=== PATIENT | female | born 1960 | race Caucasian/White ===

== ENCOUNTER → 2017-01-18 | Outpatient (CLI) | payer OTHER ==
[2017-01-18 10:34] LABS: CHLORIDE,CL 109 mmol/L (98-110); SODIUM,NA 143 mmol/L (136-146)
== END ==
LOC: MW.CHRC 09:51
PROVIDERS: ATTEND Family Medicine
DX: Z00.00 Encounter for general adult medical examination without abnormal findings (principal); I10 Essential (primary) hypertension; E03.9 Hypothyroidism, unspecified
CPT/HCPCS: 36415; 80053; 80061; 84443

== ENCOUNTER → 2017-02-19 | Outpatient (CLI) | payer OTHER ==
[2017-02-19 11:53] LABS: CHLORIDE,CL 107 mmol/L (98-110); SODIUM,NA 143 mmol/L (136-146)
--- NOTE | 2017-02-19 12:37 | CR ---
EXAMINATION: Two-view chest (PA and Lateral views). HISTORY: Preprocedural examination. FINDINGS: The trachea is midline. The cardiomediastinal silhouette is within normal limits. No pulmonary infil trates, effusions or pneumothorax. Osseous structures appear unremarkable. IMPRESSION: No acute cardiopulmonary process.
== END ==
LOC: MW.CHFP 10:30
PROVIDERS: ATTEND Family Medicine
DX: Z01.818 Encounter for other preprocedural examination (principal); M77.52 Other enthesopathy of left foot and ankle
CPT/HCPCS: 36415; 71020; 71020-26; 80048; 81001; 85025; 85610; 85730; 93005

== ENCOUNTER 2018-04-24 22:19 | Emergency (ER) | payer OTHER ==
--- NOTE | 2018-04-24 22:56 | EDM.PDOC ---
ED HPI GENERAL MEDICAL PROBLEM - General Chief Complaint: Gastrointestinal Problem Stated Complaint: PAIN TO BOTTOM Time Seen by Provider: 04/24/18 22:56 Source of Information: Reports: Patient History Limitations: Reports: No Limitations - History of Present Illness INITIAL COMMENTS - FREE TEXT/NARRATIVE: HISTORY AND PHYSICAL: History of present illness: 57-year-old female presenting to emergency department with chief complaint of bright red per rectum. Patient states that for the past few days she has noticed increasing bright red blood per rectum. States that she has a history of anal fissure that was repaired in [place] in January. States that she did have an abscess as well as the fissure that was repaired. Did have spotting as well as occasional bleeding for sometime after the surgery but in the past 2 days has had increasing bright red blood per rectum. Today she also felt somewhat lightheaded so came into the emergency department for further evaluation. States that she has no pain with defecation. She does have a history of hemorrhoids and has had and hemorrhoidectomy in the past. Denies any significant abdominal pain however she does have a history of irritable bowel so has intermittent abdominal pain consistently. Currently denies any chest pain, palpitations, shortness of breath , syncopal episodes, focal neurologic deficits. Patient has a midline suprapubic scar from total hysterectomy. States that her appendix was removed during that surgery. No other abdominal surgeries. On exam I do feel what seems to be a small anal fissure. No visible or palpable hemorrhoids. Abdomen is soft, nontender, nondistended. No other significant abnormalities found on exam. Review of systems: As per history of present illness and below otherwise all systems reviewed and negative. Past medical history: As per history of present illness and as reviewed below otherwise noncontributory. Surgical history: As per history of present illness and as reviewed below otherwise noncontributory. Social history: No reported history of drug or alcohol abuse. Family history: As per history of present illness and as reviewed below otherwise noncontributory. Physical exam: HEENT: Atraumatic, normocephalic, pupils reactive, negative for conjunctival pallor or scleral icterus, mucous membranes moist, throat clear, neck supple, nontender, trachea midline. Lungs: Clear to auscultation, breath sounds equal bilaterally, chest nontender. Heart: S1S2, regular, negative for clicks, rubs, or JVD. Abdomen: Soft, nondistended, nontender. Negative for masses or hepatosplenomegaly. Negative for costovertebral tenderness. Pelvis: Stable nontender. Genitourinary: Deferred. Rectal: Deferred. Extremities: Atraumatic, negative for cords or calf pain. Neurovascular unremarkable. Neuro: Awake, alert, oriented. Cranial nerves II through XII unremarkable. Cerebellum unremarkable. Motor and sensory unremarkable throughout. Exam nonfocal. Diagnostics: CBC, CMP, UA/UC, CT abdomen and pelvis Therapeutics: 1 L normal saline Impression: Anal fissure Bright red blood per rectum Plan: CBC showed a hemoglobin of 12. CMP as well as urinalysis were unremarkable. CT of the abdomen and pelvis were unremarkable as well. Did communicate this is patient and told her that this is most likely more from her anal fissure. I would recommend her to follow-up with general surgery as soon as possible for further evaluation she may benefit from colonoscopy as well however she did state that she's had a colonoscopy the within the last 4 years with no significant findings. As above patient was discharged in good condition with instructions to follow-up with general surgery as well as return to emergency department if she had a new or worsening symptoms. - Related Data Allergies Allergy/AdvReac Type Severity Reaction Status Date / Time erythromycin base Allergy Nausea and Verified 04/24/18 22:41 Vomiting levofloxacin [From Levaquin] Allergy Headache Verified 04/24/18 22:41 Penicillins Allergy Hives Verified 04/24/18 22:41 Home Meds: Home Meds traZODone HCl [Trazodone HCl] 100 mg PO BEDTIME 03/29/17 [History] FLUoxetine [PROzac] 30 mg PO DAILY 04/24/18 [History] Past Medical History Other HEENT History: wears glasses Cardiovascular History: Reports: None Respiratory History: Reports: None Gastrointestinal History: Reports: GERD, Hemorrhoids, Irritable Bowel Syndrome Genitourinary History: Reports: None [employer] History: Reports: None Musculoskeletal History: Reports: Fracture Other Musculoskeletal History: hx of fx left arm Neurological History: Reports: Other (See Below) Other Neuro History: hx of motion sickness Psychiatric History: Reports: Anxiety, Depression Endocrine/Metabolic History: Reports: None Hematologic History: Reports: None Immunologic History: Reports: None Oncologic (Cancer) History: Reports: None Dermatologic History: Reports: None - Past Surgical History Head Surgeries/Procedures: Reports: None HEENT Surgical History: Reports: Tonsillectomy Cardiovascular Surgical History: Reports: None Respiratory Surgical History: Reports: None GI Surgical History: Reports: Appendectomy, Colonoscopy, Other (See Below) Other GI Surgeries/Procedures: hemorrhoidectomy Female Surgical History: Reports: Hysterectomy Endocrine Surgical History: Reports: None Neurological Surgical History: Reports: None Musculoskeletal Surgical History: Reports: ORIF Other Musculoskeletal Surgeries/Procedures:: hx of ORIF left arm and hardware removal left arm Dermatological Surgical History: Reports: None ED ROS GENERAL - Review of Systems Review Of Systems: ROS reveals no pertinent complaints other than HPI. ED EXAM, GENERAL - Physical Exam Exam: See Below Course - Vital Signs Last Recorded V/S: Last Vital Signs Temp 97.9 F 04/24/18 22:19 Pulse 73 04/24/18 22:19 Resp 16 04/24/18 22:19 BP 159/87 H 04/24/18 22:19 Pulse Ox 97 04/24/18 22:19 - Orders/Labs/Meds Orders: Active Orders 24 hr Category Date Time Status Abdomen Pelvis w Cont [CT] Stat Exams 04/25/18 00:14 Stop Req Abdomen Pelvis wo Cont [CT] Stat Exams 04/25/18 00:43 Taken CULTURE URINE [RM] Stat Lab 04/25/18 00:40 Received UA W/MICROSCOPIC [URIN] Stat Lab 04/25/18 00:40 Ordered Labs: Laboratory Tests 04/24/18 04/24/18 04/25/18 Range/Units 23:40 23:40 00:40 WBC 5.89 (4.0-11.0) K/uL RBC 4.35 (4.30-5.90) M/uL Hgb 12.9 (12.0-16.0) g/dL Hct 37.0 (36.0-46.0) % MCV 85.1 (80.0-98.0) fL MCH 29.7 (27.0-32.0) pg MCHC 34.9 (31.0-37.0) g/dL RDW Std Deviation 38.6 (28.0-62.0) fl RDW Coeff of Quan 13 (11.0-15.0) % Plt Count 249 (150-400) K/uL MPV 10.00 (7.40-12.00) fL Neut % (Auto) 53.8 (48.0-80.0) % Lymph % (Auto) 37.4 (16.0-40.0) % [place]cdonough % (Auto) 6.8 (0.0-15.0) % Eos % (Auto) 1.5 (0.0-7.0) % Baso % (Auto) 0.5 (0.0-1.5) % Neut # (Auto) 3.2 (1.4-5.7) K/uL Lymph # (Auto) 2.2 (0.6-2.4) K/uL Mcdonough # (Auto) 0.4 (0.0-0.8) K/uL Eos # (Auto) 0.1 (0.0-0.7) K/uL Baso # (Auto) 0.0 (0.0-0.1) K/uL Nucleated RBC % 0.0 /100WBC Nucleated RBCs # 0 K/uL Sodium 139 (136-145) mmol/L Potassium 3.5 (3.5-5.1) mmol/L Chloride 103 (98-107) mmol/L Carbon Dioxide 24.5 (21.0-32.0) mmol/L BUN 21 H (7.0-18.0) mg/dL Creatinine 1.0 (0.6-1.0) mg/dL Est Cr Clr Drug Dosing 61.10 mL/min Estimated GFR (MDRD) 56.7 ml/min Glucose 100 (74-106) mg/dL Calcium 8.6 (8.5-10.1) mg/dL Total Bilirubin 0.3 (0.2-1.0) mg/dL AST 17 (15-37) IU/L ALT 24 (14-63) IU/L Alkaline Phosphatase 58 (46-116) U/L Total Protein 7.0 (6.4-8.2) g/dL Albumin 4.0 (3.4-5.0) g/dL Globulin 3.0 (2.0-3.5) g/dL Albumin/Globulin Ratio 1.3 (1.3-2.8) Urine Color YELLOW Urine Appearance CLEAR Urine pH 5.5 (5.0-8.0) Ur Specific [place] <= 1.005 (1.001-1.035) Urine Protein NEGATIVE (NEGATIVE) mg/dL Urine Glucose (UA) NEGATIVE (NEGATIVE) mg/dL Urine Ketones NEGATIVE (NEGATIVE) mg/dL Urine Occult Blood TRACE-INTACT (NEGATIVE) Urine Nitrite NEGATIVE (NEGATIVE) Urine Bilirubin NEGATIVE (NEGATIVE) Urine Urobilinogen 0.2 (<2.0) EU/dL Ur Leukocyte Esterase NEGATIVE (NEGATIVE) Urine RBC 0-1 (0-2/HPF) Urine WBC 0-1 (0-5/HPF) Ur Epithelial Cells RARE (NONE-FEW) Urine Bacteria RARE (NEGATIVE) Meds: Medications Discontinued Medications Generic Name Dose Route Start Last Admin Trade Name Freq PRN Reason Stop Dose Admin Sodium Chloride 1,000 mls @ 1,000 mls/hr 04/24/18 23:48 04/24/18 23:50 Normal Saline IV 04/25/18 00:47 1,000 mls/hr .Bolus ONE Administration Departure - Departure Time of Disposition: 01:49 Disposition: Home, Self-Care 01 Condition: Good Clinical Impression: Anal fissure, unspecified, Bright red blood per rectum - Discharge Information Referrals: Felix Arguello MD [Primary Care Provider] - Forms: ED Department Discharge Additional Instructions: My general discharge The following information is given to patients seen in the emergency department who are being discharged to home. This information is to outline your options for follow-up care. We provide all patients seen in our emergency department with a follow-up referral. The need for follow-up, as well as the timing and circumstances, are variable depending upon the specifics of your emergency department visit. If you don't have a primary care physician on staff, we will provide you with a referral. We always advise you to contact your personal physician following an emergency department visit to inform them of the circumstance of the visit and for follow-up with them and/or the need for any referrals to a consulting specialist. The emergency department will also refer you to a specialist when appropriate. This referral assures that you have the opportunity for follow-up care with a specialist. All of these measure are taken in an effort to provide you with optimal care, which includes your follow-up. Under all circumstances we always encourage you to contact your private physician who remains a resource for coordinating your care. When calling for follow-up care, please make the office aware that this follow-up is from your recent emergency room visit. If for any reason you are refused follow-up, please contact the [facility] Emergency Department at and asked to speak to the emergency department charge nurse. My General Surgery [facility] Specialty Care - General Surgery Professional Building [address] [place] [address], [address] [place] [address] Please call number above and asked to be seen by Dr. Hirsch for bright red blood per rectum most likely secondary to anal fissure. Be sure to tell them you were recently seen in the emergency department and they recommended follow- up as soon as possible. Follow-up with her care provider. Return to emergency department if any new or worsening symptoms. - My Orders Last 24 Hours: My Active Orders 04/25/18 00:14 Abdomen Pelvis w Cont [CT] Stat 04/25/18 00:40 CULTURE URINE [RM] Stat UA W/MICROSCOPIC [URIN] Stat 04/25/18 00:43 Abdomen Pelvis wo Cont [CT] Stat - Assessment/Plan Last 24 Hours: My Active Orders 04/25/18 00:14 Abdomen Pelvis w Cont [CT] Stat 04/25/18 00:40 CULTURE URINE [RM] Stat UA W/MICROSCOPIC [URIN] Stat 04/25/18 00:43 Abdomen Pelvis wo Cont [CT] Stat
[2018-04-24 23:01] VITALS: BP 159/87
[2018-04-24] MEDS ORDERED: Sodium Chloride 0.9% 1,000 ML IV ONE (23:48)
--- NOTE | 2018-04-25 16:38 | CT ---
EXAM DATE: 04/24/18 PATIENT'S AGE: 57 Patient: AKBAR DOMINGUEZ Facility: [place], [place] Site . Site : [id number] Study: CT Abdomen/Pelvis [id number]/22/2018 1:14:03 AM Ordering Physician: Juanjose Mane Final Report: INDICATION: blood in stool x 2 daysHx of fissure, abscess, etc TECHNIQUE: CT abdomen and pelvis acquired with IV contrast. COMPARISON: None FINDINGS: Lower chest: Unremarkable. Liver: Unremarkable. Spleen: Unremarkable. Pancreas: Unremarkable. Gallbladder and bile ducts: Unremarkable. Kidneys: Subcentimeter focus of low attenuation within the upper pole of the left kidney which is too small to accurately characterize by CT Adrenal glands: Unremarkable. GI tract: Moderate amount of stool. The appendix is not visualized. Vascular structures: Negative. No sign of aneurysm. Lymph nodes: Unremarkable. Miscellaneous: Unremarkable. No free air or significant free fluid. Pelvic Organs: Hysterectomy. Bones: Unremarkable for age. IMPRESSION: No acute abnormality of the abdomen and pelvis. Moderate amount of stool. Dictated by Eric Allen MD @ 04/25/2018 1:27:28 AM Please note that all CT scans at this facility use dose modulation, iterative reconstruction, and/or weight-based dosing when appropriate to reduce radiation dose to as low as reasonably achievable. Dictated by: Eric Allen MD @ 04/25/2018 01:27:39 (Electronic Signature) Report Signed by Proxy. [facility]OSPITALMiller
== END 2018-04-25 02:04 | disposition home or self-care (01) ==
LOC: MW.ED 22:19
DX: K60.2 Anal fissure, unspecified (principal); K62.5 Hemorrhage of anus and rectum; Z88.1 Allergy status to other antibiotic agents; Z88.0 Allergy status to penicillin; Z79.899 Other long term (current) drug therapy
CPT/HCPCS: 74176; 80053; 81001; 85025; 87086; 96360; 96361; 99285; J7040

== ENCOUNTER 2018-06-23 06:48 | Day surgery (SDC) | payer OTHER ==
[2018-06-23] MEDS ORDERED: Bupivacaine 0.5% 30 ML SDV ONE (07:21)
--- NOTE | 2018-06-23 07:29 | PCM.PREANE ---
Preanesthetic Assessment - Anesthesia/Transfusion/Family Hx Anesthesia History: Prior Anesthesia Without Reaction Transfusion History: No Prior Transfusion(s) Intubation History: Unknown - Review of Systems General: No Symptoms Pulmonary: No Symptoms Cardiovascular: No Symptoms Neurological: No Symptoms Other: Reports: None - Physical Assessment O2 Sat by Pulse Oximetry: 97 Respiratory Rate: 16 Vital Signs: Last Vital Signs Temp 36.6 C 06/23/18 07:06 Pulse 71 06/23/18 07:06 Resp 16 06/23/18 07:06 BP 136/93 H 06/23/18 07:06 Pulse Ox 97 06/23/18 07:06 Height: 1.73 m Weight: 73.936 kg ASA Class: 2 Mental Status: Alert & Oriented x3 Dentition: Reports: Normal Dentition (braces - upper and lower) Thyro-Mental Finger Breadths: 3 Mouth Opening Finger Breadths: 3 ROM/Head Extension: Full Lungs: Clear to Auscultation, Normal Respiratory Effort Cardiovascular: Regular Rate, Regular Rhythm - Allergies Allergies/Adverse Reactions: Allergies Allergy/AdvReac Type Severity Reaction Status Date / Time erythromycin base Allergy Nausea and Verified 06/18/18 14:36 Vomiting levofloxacin [From Levaquin] Allergy Headache Verified 06/18/18 14:36 Penicillins Allergy Hives Verified 06/18/18 14:36 - Blood Blood Available: No - Anesthesia Plan Pre-Op Medication Ordered: None - Acknowledgements Anesthesia Type Planned: General Anesthesia Pt an Appropriate Candidate for the Planned Anesthesia: Yes Alternatives and Risks of Anesthesia Discussed w Pt/Guardian: Yes Pt/Guardian Understands and Agrees with Anesthesia Plan: Yes PreAnesthesia Questionnaire HEENT History: Reports: Other (See Below) Other HEENT History: wears glasses Cardiovascular History: Reports: High Cholesterol, Hypertension Other Cardiovascular History: not taking meds Respiratory History: Reports: None Gastrointestinal History: Reports: Chronic Constipation, Chronic Diarrhea, Hemorrhoids, Irritable Bowel Syndrome Genitourinary History: Reports: None [employer] History: Reports: None Musculoskeletal History: Reports: Fracture Other Musculoskeletal History: hx of fx left humerus Neurological History: Reports: Other (See Below) Other Neuro History: hx of motion sickness Psychiatric History: Reports: Anxiety, Depression Endocrine/Metabolic History: Reports: None Hematologic History: Reports: None Immunologic History: Reports: None Oncologic (Cancer) History: Reports: None Dermatologic History: Reports: None - Past Surgical History Head Surgeries/Procedures: Reports: None HEENT Surgical History: Reports: Tonsillectomy Cardiovascular Surgical History: Reports: None Respiratory Surgical History: Reports: None GI Surgical History: Reports: Appendectomy, Colonoscopy, Other (See Below) Other GI Surgeries/Procedures: repair of rectal fissure and hemorrhoidectomy Female Surgical History: Reports: Hysterectomy Endocrine Surgical History: Reports: None Neurological Surgical History: Reports: None Musculoskeletal Surgical History: Reports: ORIF Other Musculoskeletal Surgeries/Procedures:: ORIF left humerus- hardware removed Dermatological Surgical History: Reports: None - SUBSTANCE USE Smoking Status *Q: Never Smoker Recreational Drug Use History: No - HOME MEDS Home Medications: Home Meds traZODone HCl [Trazodone HCl] 100 mg PO BEDTIME 03/29/17 [History] LORazepam 0.5 mg PO TID PRN 06/18/18 [History] Multivitamin [Multiple Vitamins] 1 tab PO DAILY 06/18/18 [History] PARoxetine HCl [Paxil] 30 mg PO DAILY 06/18/18 [History] - CURRENT (IN HOUSE) MEDS Current Meds: Current Medications Discontinued Medications Bupivacaine HCl (Marcaine 0.5%) Confirm Administered Dose 30 ml .ROUTE .STK-MED ONE Stop: 06/23/18 07:22
[2018-06-23] MEDS ORDERED: Lidocaine 2% 5 ML SDV ONE (07:31)
[2018-06-23] MEDS ORDERED: Ondansetron 4 MG/2 ML SDV ONE (07:31)
[2018-06-23] MEDS ORDERED: Propofol 200 MG/20 ML SDV ONE (07:31)
[2018-06-23] MEDS ORDERED: Midazolam 1 MG/ML 2 ML SDV ONE (07:32)
[2018-06-23] MEDS ORDERED: fentaNYL 250 MCG/5 ML SDV ONE (07:32)
[2018-06-23] MEDS ORDERED: Ketorolac 30 MG/ML SDV ONE (09:04)
--- NOTE | 2018-06-23 09:58 | PCM.OPNOTE ---
- General Post-Op/Procedure Note Date of Surgery/Procedure: 06/23/18 Operative Procedure(s): exostectomy and excision of loose body first metatarsal phalangeal joint left foot Findings: consistent with dx Pre Op Diagnosis: exostosis and loose body first metatarsal phalangeal joint left foot Post-Op Diagnosis: exostosis and loose body first metatarsal phalangeal joint left foot Anesthesia Technique: General LMA Primary Surgeon: Cristofer Tamez Anesthesia Provider: Sarina Gautam Pathology: loose bodies removed from first metatarsal phalangeal joint left foot EBL in mLs: 3 Complications: none Condition: Good Free Text/Narrative:: injectables 7 ml 0.5% marcaine plain materials: 4-0 vicryl, 4-0 monocryl, 4-0 Statafix monocryl
--- NOTE | 2018-06-23 11:02 | PCM48HPAN ---
Post Anesthesia Note - EVALUATION WITHIN 48HRS OF ANESTHETIC Vital Signs in Normal Range: Yes Patient Participated in Evaluation: Yes Respiratory Function Stable: Yes Airway Patent: Yes Cardiovascular Function Stable: Yes Hydration Status Stable: Yes Pain Control Satisfactory: Yes Nausea and Vomiting Control Satisfactory: Yes Mental Status Recovered: Yes Resp Rate: 12
--- NOTE | 2018-06-23 11:02 | PCM.POSTAN ---
POST ANESTHESIA ASSESSMENT - MENTAL STATUS Mental Status: Alert, Oriented - RESPIRATORY Respiratory Status: Respiratory Rate WNL, Airway Patent, O2 Saturation Stable - CARDIOVASCULAR CV Status: Pulse Rate WNL, Blood Pressure Stable - GASTROINTESTINAL GI Status: No Symptoms - POST OP HYDRATION Hydration Status: Adequate & Stable
[2018-06-23 11:14] VITALS: BP 118/79
--- NOTE | 2018-06-23 14:00 | PN ---
SUBJECTIVE: The patient is a 57-year-old female, date of surgery is today June 23, 2018. Planned procedure is exostectomy and removal of loose body, first metatarsophalangeal joint, left foot. Anesthesia, general. Hemostasis, above the ankle pneumatic tourniquet, inflated to a pressure of 250 mmHg. MEDICAL HISTORY: Allergies: 1. Potassium. 2. Penicillins. 3. Levaquin. 4. Erythromycin. CURRENT MEDICATIONS: 1. Lorazepam 0.5 mg oral tablet, one tablet three times daily as needed. 2. Multivitamin daily oral tablet, take one tablet daily. 3. Paroxetine hydrochloride 30 mg oral tablet, take one tablet daily. 4. Trazodone hydrochloride 100 mg oral tablet, one tablet at bedtime. ACTIVE PROBLEMS: 1. Acute bronchitis. 2. Acute sinusitis. 3. Acute viral bronchitis. 4. Anxiety. 5. skin of the left upper extremity and shoulder. 6. Bone spur, left toe of left foot. 7. Breast cancer screening. 8. Depression with anxiety. 9. History of dyslipidemia. 10.Hemorrhoids. 11.High blood pressure. 12.High cholesterol. 13.History of obesity. 14.Hypocalcemia. 15.Insomnia. 16.Irritable bowel syndrome with constipation and diarrhea. 17.Left foot pain. 18.History of . 19.Neuralgia, paresthesia of right side. 20.Osteopenia of the elbow region. 21.Osteoporosis. 22.Preoperative examination. 23.Rosacea. 24.Seborrheic keratosis. 25.Sore throat. PAST MEDICAL HISTORY: History of dyslipidemia; history of euthyroid; history of hemorrhoids, external; history of hemorrhoids, internal; history of constipation; history of hypothyroidism; history of obesity; history of menopausal symptoms. SURGICAL HISTORY: History of appendectomy, history of complete colonoscopy, history of hemorrhoidectomy, history of hysterectomy not due to cancer, history of tonsillectomy, and history of total abdominal hysterectomy. LABORATORY DATA: Urinalysis was unremarkable. White blood cells 4.13, red blood cells 4.37, hemoglobin 12.8, hematocrit 37.7, platelet count 237. INR 0.98, PTT 27.3. Sodium 140, potassium 4.5, chloride 105, CO2 of 29.2, random glucose 91, BUN 17, creatinine 0.9. EKG and chest x-ray were reviewed from last year by Dr. Arguello and showed no disqualifying factors. The patient was cleared for surgery by Dr. Arguello with no contraindications to surgery. The patient consent is signed in the chart. All patient questions have been answered and risks and benefits of surgery have been discussed with the patient. No guarantees given or implied. CHRISTY RUSSELL /[id number]
--- NOTE | 2018-06-24 02:53 | OR ---
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 POSTOPERATIVE DIAGNOSIS: Exostosis with loose body, first metatarsophalangeal joint, left foot. OPERATIVE PROCEDURE: Exostectomy with excision of loose body, first metatarsophalangeal joint, left foot. ANESTHESIA: General. HEMOSTASIS: Above ankle pneumatic tourniquet inflated to a pressure of 250 mmHg after an Esmarch bandage exsanguination of the left lower extremity. ESTIMATED BLOOD LOSS: 5 mL. MATERIALS: 4-0 Vicryl, 4-0 Stratafix, Monocryl, and 4-0 Monocryl. INJECTABLES: 7 mL of 0.5% Marcaine plain. PATHOLOGY: 3 loose bodies consisting of bone found within the first metatarsophalangeal joint of the left foot. CONDITION: The patient tolerated the procedure and anesthesia well without any complications noted or reported. JUSTIFICATION FOR THE PROCEDURE: The patient, Ms. Perales, has long suffered from pain in the first metatarsophalangeal joint of her left foot with no appreciable range of motion, particularly on dorsiflexion. She originally wanted to have this surgery last year, however, scheduling conflicts caused her to wait until today. Conservative treatments have proven unsuccessful in providing lasting satisfactory alleviation of symptoms for the patient. The patient was told of the benefits as well as possible side effects of surgery. With the patient consenting for the surgical correction today, all patient questions were answered, no guarantees expressed or implied, the patient consent form was signed and placed in the patient's chart. The patient was brought to the operating room and placed on the operating table in a supine position, at which time an aseptic scrub and drape was performed about the patient's left lower extremity after anesthesia had been induced as described above. The pneumatic tourniquet about the ankle was inflated to a pressure of 250 mmHg. Attention was directed to the dorsal aspect of the patient's left first metatarsophalangeal joint where the procedure commenced. PROCEDURE IN DETAIL: A 2.5 cm linear incision was planned and made over the patient's first metatarsophalangeal joint of the left foot. The incision was deepened down to the level of subcutaneous tissue with care taken to cut, clamp, ligate, and/or retract away any small vascular structures traversing the incision site. Incision was deepened down to the level of the extensor hallucis longus tendon which was retracted both medially and laterally during the procedure as necessary to expose the exostosis identified on the head of the first metatarsal as well as the loose bodies within the joint. Intraoperative fluoroscopy was used throughout the procedure as needed including prior to beginning the procedure and demonstrated an exostosis present at the dorsal aspect of the first metatarsal head of the left leg as well as significant loose body fragments within the joint. Once the first metatarsophalangeal joint was exposed, 3 loose bodies of various sizes ranging as great as up to 1.6 cm roughly in the greatest dimension were removed and were placed in a sterile specimen container for transport to pathology for gross and histologic examination as needed. A bone rongeur was used to remove the exostosis at the first metatarsal head and a power rasp was used to rasp smooth the hypertrophic head area. The incision site was copiously irrigated with normal sterile saline and dabbed dry in preparation for layered soft tissue closure. The deep and subcutaneous tissue reapproximated with 4-0 Vicryl suture, and the superficial skin was reapproximated using Stratafix 4-0 Monocryl as well as 4-0 Monocryl suture. The area was infiltrated with 7 mL of 0.5% Marcaine plain and covered with Betadine-soaked Xeroform gauze, fluff gauze, Kerlix roll, and secured with an Justin bandage. As the dressings were being applied, the tourniquet was deflated and a prompt hyperemic response was noted to all digits of the left foot of the patient. The patient tolerated the procedure and the anesthesia well with no complications noted, and after brief stay in recovery was transported back to the preoperative bay, and discharged home with prescription for adequate analgesic care and written instructions in the discharge plan for followup. The patient maintains my cellphone in the event any concerns arise. CHRISTY / YVONNE /[id number]
== END 2018-06-23 12:14 | disposition home or self-care (01) ==
LOC: MW.SDS 06:48
PROVIDERS: ATTEND Podiatrist Foot & Ankle Surgery
DX: D16.32 Benign neoplasm of short bones of left lower limb (principal); M77.52 Other enthesopathy of left foot and ankle; I10 Essential (primary) hypertension; J20.8 Acute bronchitis due to other specified organisms; K64.9 Unspecified hemorrhoids; K58.2 Mixed irritable bowel syndrome; E78.00 Pure hypercholesterolemia, unspecified; E83.51 Hypocalcemia; G47.00 Insomnia, unspecified; G57.11 Meralgia paresthetica, right lower limb; M85.80 Other specified disorders of bone density and structure, unspecified site; L82.1 Other seborrheic keratosis; F41.8 Other specified anxiety disorders; Z88.0 Allergy status to penicillin; Z79.899 Other long term (current) drug therapy
CPT/HCPCS: 28104; 76000; J1885; J2250; J2405; J2704; J3010; J3490; 01480